=== PATIENT | male | born 1945 | race Caucasian/White ===

== ENCOUNTER 2016-11-28 12:12 | Observation (INO) | payer MEDICARE, OTHER ==
[~2016-11-28] VITALS: Ht 193 cm; Wt 126.5 kg
[2016-11-28] VITALS (7 sets, daily range): BP systolic 116–133; BP diastolic 55–76; PULSE 51–60; RESP 17–19; O2SAT 96–98
--- NOTE | 2016-11-28 12:50 | ED.REPORT ---
HPI-Chest Pain 40 and Over Date of Service Nov 28, 2016 ED Provider: History of Present Illness: 71-year-old male here for chest pain. Substernal onset 4 days ago area gets diaphoretic, short of breath, and pain worsens with activity. He is woken up in the middle of night with increased chest pain and diaphoresis. No history of CT, hypertension, diabetes or hypercholesteremia. Patient is a nonsmoker. He was given 325 of aspirin this morning by EMS. He was given 2 nitroglycerin and after each dose his pain was alleviated. He is now rating his pain a of 0 out of 10. He has been under more stress and more anxiety recently. He did take 1 Tums and it did make the pain a little bit better. Son is a medic who was quite concerned about him and prompted this visit today. Denies nausea, vomiting. He had a loose stool today. Last saw his doctor about a year ago. He was hypertensive upon initial evaluation systolic bp in the 200s, no known hx of htn Nursing Notes Stated Complaint: CHEST PAIN Nursing Notes Reviewed: Yes Allergies: Coded Allergies: No Known Allergies (Unverified , 11/28/16) Scheduled Ascorbic Acid (Vitamin C) 250 Mg Tab.chew 1,000 MG PO QAM Aspirin Chew (Aspirin Chew) 81 Mg Chew 162 MG PO QAM Cholecalciferol (Vitamin D3) (Vitamin D3) 2,000 Unit Tablet 2,000 UNIT PO QAM Multivit with Calcium,Iron,Min (Multivitamins H-Ebsamcq-Uesi) 1 Each Tablet 1 EACH PO QAM Scheduled PRN Naproxen Sodium (Naproxen Sodium) 220 Mg Capsule 220 MG PO BID PRN PRN For Pain General Time Seen by MD: 12:38 Chief Complaint Chest pain Hx Obtained From: Patient, Spouse, Son Arrived By: Ambulance Sudden in Onset?: Yes Onset Occurred: 4 days ago Symptom Duration: Intermittent Location: : Substernal Quality: Fullness, Heaviness Radiation: : Does not radiate Severity: Current: No pain currently Severity: Maximum: Pain level 5 out of 10 Recent Healthcare: No recent doctor visit Similar Sx Previous: No Past Medical History Past Medical History Notes: denies Review of Systems Basic Review of Systems Eyes: Vision NL, No discharge ENT: Hearing NL, No pain, No nasal congestion, No pharyngeal pain : No dysuria, No frequency Hematologic: No bleeding, No bruising Constitutional: Denies: Chills, Fatigue, Fever Respiratory: Reports: Dyspnea on exertion, Non-productive cough Cardiovascular: Reports: Chest pain, Dyspnea on exertion, Denies: Palpitations GI: Reports: Diarrhea, Denies: Abdominal pain, Nausea, Vomiting Musculoskeletal: Denies: Back pain Skin: Reports Diaphoresis Neurologic: Denies: Change LOC, Confusion, Focal weakness, Headache, Lightheaded, Problem walking Complete sys rev & neg: except as marked. Physical Exam Initial Vital Signs Vital Signs (First) Date Time Temp Pulse Resp B/P Pulse Ox O2 Delivery O2 Flow Rate FiO2 11/28/16 12:45 36.7 60 17 128/56 97 Room Air Initial VS: Reviewed, Vital signs normal General/Constitutional: Awake, Alert, No acute distress, Well appearing Respiratory / Chest: Breath sounds NL, Breath sounds = bilat, No respiratory distress, No rales, No rhonchi, No wheezing, No stridor, No chest tenderness Cardiovascular: Heart rate NL, Regular rhythm, Heart sounds NL, No murmurs, Peripheral circulation NL, Pulses = bilaterally, No gross BP differential Abdomen: Soft, Non-tender, McBurney's non-tender, No guarding, No rebound, BS normoactive, No distention, No hernia, No palpable mass quiac negative Neck: Supple, Full range of motion, No swelling, Non-tender, No masses, No JVD Skin: Color NL, Warm, Dry, Turgor NL Interpretation & Diagnostics Lab Results Interpretation Result Diagram: 11/28/16 1300 11/28/16 1300 Test 11/28/16 13:00 11/28/16 14:41 White Blood Count 5.5th/mm3 (3.8-10.1) Red Blood Count 4.90mil/mm3 (4.40-5.80) Hemoglobin 15.9g/dL (13.8-17.2) Hematocrit 46.1% (41.0-50.0) Mean Corpuscular Volume 94.1fL (81-100) Mean Corpuscular Hemoglobin 32.4pg (27.0-35.0) Mean Corpuscular Hemoglobin Concent 34.5% (32.0-37.0) Red Cell Distribution Width 13.7% (12.3-15.4) Platelet Count 124bil/L (150-400) Neutrophils (%) (Auto) 55.2% (40-74) Lymphocytes (%) (Auto) 34.1% (14-46) Monocytes (%) (Auto) 7.9% (4-12) Eosinophils (%) (Auto) 2.2% (0-5) Basophils (%) (Auto) 0.6% (0-3) Prothrombin Time 10.9sec (8.1-12.5) Prothromb Time International Ratio 1.02ratio D-Dimer 0.61mg/L FEU (<0.50) Sodium Level 139mEq/L (134-144) Potassium Level 3.9mEq/L (3.5-5.2) Chloride Level 102mEq/L (97-108) Carbon Dioxide Level 19mmol/L (18-29) Blood Urea Nitrogen 22mg/dL (8-27) Creatinine 0.66mg/dL (0.76-1.27) Estimat Glomerular Filtration Rate 127mL/min (>59) Glucose Level 105mg/dL (60-99) Calcium Level 9.1mg/dL (8.5-10.1) Magnesium Level 2.2mg/dL (1.6-2.6) Total Bilirubin 0.7mg/dL (0.0-1.2) Aspartate Amino Transf (AST/SGOT) 28U/L (0-50) Alanine Aminotransferase (ALT/SGPT) 22U/L (0-44) Alkaline Phosphatase 63U/L (25-160) Pro-B-Type Natriuretic Peptide 57.74pg/mL (0-376) Total Protein 7.7g/dL (6.4-8.4) Albumin 4.4g/dL (3.4-5.0) Activated Partial Thromboplast Time 29.2sec (22.8-33.0) X-Ray Chest Interpretation Chest Xray Interpretation: PROCEDURE: X-RAY CHEST ONE VIEW, PORTABLE ([id number]) INDICATIONS: cp/sob TECHNIQUE: One view of the chest was acquired. COMPARISON: None. FINDINGS: Surgical changes and devices: None. Lungs and pleura: No pleural effusions or pneumothorax. Lungs are clear. Mediastinum: Mediastinal contours appear normal. Heart size is normal. Bones and chest wall: No suspicious bony lesions. Overlying soft tissues appear unremarkable. IMPRESSION: 1. No acute cardiopulmonary disease. Re-Eval/Medical Decision Med Decision/Clinical Course Patient has been chest pain free since arrival in ER. HEART score 5, moderate risk Dr. Casey evaluated patient as well, advises tx. 1522 Dr Burns accepts pt, will admit. pt still pain free Discharge & Departure Shift Change Sign-Out Laboratory Evaluation: Lab evaluation discussed Imaging Studies: Imaging discussed Procedures: Results discussed Primary Impression: Chest pain Chest pain type: unspecified Qualified Code: R07.9 - Chest pain, unspecified Disposition: ADMITTED TO HOSPITAL Discharge Condition All VS Reviewed: Yes Condition: Stable Patient Instructions: Chest Pain (ED) Referrals: OTHER,PHYSICIAN (PCP) Carlos Davalos MD, Melaku MD EDSupervising Provider for APC: Antonio De Jesus DO Attending Statement I have seen and examined the patient. I have reviewed the chart and agree with the documentation as recorded by the Midlevel Provider, including assessment, treatment plan, and disposition. Findings from my exam are included in documentation above. copies to: Antonio De Jesus DO; Thai Burns MD, Linnea K ARNP Nov 28, 2016 12:50 Antonio De Jesus DO Nov 28, 2016 16:02 Lucille Matthews Nov 28, 2016 12:50 Antonio De Jesus DO Nov 28, 2016 16:02
[2016-11-28] MEDS ORDERED: LidocaineVisc 2%:Antacid 1:1 10 mL Syringe PO SCH (13:05)
[2016-11-28 13:10] LABS: BASOPHILS % (AUTO) 0.6 % (0-3); EOSINOPHILS % (AUTO) 2.2 % (0-5); MONOCYTES % (AUTO) 7.9 % (4-12); Mean Corpuscular Hemoglobin 32.4 pg (27.0-35.0); Mean Corpuscular Volume 94.1 fL (81-100); NEUTROPHILS % (AUTO) 55.2 % (40-74); Platelet Count 124 bil/L (150-400)
[2016-11-28 13:25] LABS: INR 1.02 ratio
--- NOTE | 2016-11-28 13:36 | DRSVH ---
PROCEDURE: X-RAY CHEST ONE VIEW, PORTABLE ([id number]) INDICATIONS: cp/sob TECHNIQUE: One view of the chest was acquired. COMPARISON: None. FINDINGS: Surgical changes and devices: None. Lungs and pleura: No pleural effusions or pneumothorax. Lungs are clear. Mediastinum: Mediastinal contours appear normal. Heart size is normal. Bones and chest wall: No suspicious bony lesions. Overlying soft tissues appear unremarkable. IMPRESSION: 1. No acute cardiopulmonary disease. Dictated by: José Miguel Glass M.D. on 11/28/2016 at 13:34 Approved by: José Miguel Glass M.D. on 11/28/2016 at 13:34
[2016-11-28 13:41] LABS: TROPONIN T < 0.010 ug/L (0.0-0.011)
[2016-11-28 13:46] LABS: Magnesium 2.2 mg/dL (1.6-2.6)
[2016-11-28] MEDS ORDERED: Nitroglycerin 2% 1 Gm Ointment TOPICAL SCH (13:50)
[2016-11-28] MEDS ORDERED: Heparin 5,000 Unit/mL Inj IVPUSH ONE (14:10)
[2016-11-28] MEDS ORDERED: Heparin 25K Unit/500mL 0.45 NS 25,000 UNIT in IV Premix 1 EACH IV ONE (14:10)
[2016-11-28] MEDS ORDERED: MULT-528 PO (15:29)
[2016-11-28] MEDS ORDERED: CHOL200025 PO (15:29)
[2016-11-28] MEDS ORDERED: ASPI81TA3 PO (15:29)
[2016-11-28] MEDS ORDERED: NAPR220C16 PO (15:29)
[2016-11-28] MEDS ORDERED: ASCO250T7 PO (15:29)
[2016-11-28] MEDS ORDERED: Ondansetron 2 mg/mL 2 mL Inj IVPUSH PRN ×2 (15:40→15:50)
[2016-11-28] MEDS ORDERED: Alum-Mag Hydrox-Simeth 30 mL Suspension PO PRN ×2 (15:40→15:50)
[2016-11-28] MEDS ORDERED: Polyethylene Glycol (PEG) 17 Gm Powder PO PRN (15:50)
--- NOTE | 2016-11-28 15:51 | PCM.HPMED ---
Subjective Date of Service Nov 28, 2016 Primary Provider: Admitting Physician: Thai Burns MD Primary Care Physician: Other,Physician Attending Physician: Thai Burns MD Admit Status: From the Emergency Department, 23-Hour Observation Chief Complaint: chest pain /4 days History of Present Illness: 71 yo adiel with PMH HLD presented with chest pain of 4 days . He states he started to have gradual onset dull aching chest pain on left side 4 days ago. Pain started while walking at workplace. 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 Pain is intermittent,6/10 when it comes ,lasts 15 minutes ,2-3 times/day for the last 3 days. No much exertion at work place except walking. He took Tums last night and give him some relief. He had one episode this morning. Had had another episode this afternoon which lasted a bit longer . He called EMS ,SBP reportedly was in 200's when checked by EMS. nitro x2 given by EMS and pain resolved. He has history of on and off high blood pressure. He had cataract surgery on Tuesday,SBP was 180's,his BP at home was 140's today . He also had history of high cholesterol. He was started on Pravastatin but discontinued due to side effects. Does not exercise much but walks 10,000 steps a day . No symptoms previously No family history of coronary artery disease.never smoked .takes ASA 81mg daily Had similar symptoms 10 years ago after eating Malagasy food. Workup including stress test negative 10 yrs ago ED course: Vital signs unremarkable. Exam unremarkable. EKG sinus rhythm at 67 ,LAFB , initial troponin negative Review of Systems: Comprehensive review of systems performed, pertinent positives and negatives included in history of present illness Allergies Coded Allergies: No Known Allergies (Unverified , 11/28/16) Home Medications ASA 81mg daily PMH Hyperlipidemia High blood pressure Surgical History Bilateral hip replacement Family History Father at age 86 due to old age Mother at 94 due to dementia He has 2 brothers , no coronary disease history Social History Hx Alcohol Use: No Hx Substance Use: No Hx Tobacco Use: No Exam Vital Signs Vital Sign - Last Date Time Temp Pulse Resp B/P Pulse Ox O2 Delivery O2 Flow Rate FiO2 11/28/16 14:22 59 19 126/55 98 Room Air 11/28/16 12:45 36.7 Exam Gen. patient is lying comfortably in hospital bed HEENT: Head is normocephalic atraumatic, Pupils equal and reactive, extraocular movements intact, Lungs clear to auscultation bilaterally Heart regular rate and rhythm without murmurs gallops or rubs Abdomen soft nontender without hepatosplenomegaly Extremities pulses are present dorsalis pedis posterior tibialis and radial. tSkin is warm and dry there are no rashes, Psych alert and oriented to person place and time Neuro cranial nerves II through XII are grossly intact Lymph: There is no lymphadenopathy appreciated in the cervical supra infraclavicular regions : no curran Lab and Diagnostics Result Diagram: 11/28/16 1300 11/28/16 1300 X-Rays, CTs and MRIs PROCEDURE: X-RAY CHEST ONE VIEW, PORTABLE ([id number]) INDICATIONS: cp/sob IMPRESSION: 1. No acute cardiopulmonary disease. Dictated by: José Miguel Glass M.D. on 11/28/2016 at 13:34 12-lead ECG SR at67,LAFB Assessment & Plan 71 [facility] with PMH HLD presented with chest pain of 4 days . # Chest pain -ACS unlikely but possible. -EKG sinus rhythm at 67,LAFB , initial troponin negative -nitro prn for painm,ASA given -EKG prn when chest pain -troponin q6h ,echo -Stress test in a.m. if troponin remains negative -trial of Protonix 20 mg po bid started -hold off statin given history of side effects. lipid profile in the morning.a1c requested # history of HLD -lipid panel in am # high blood pressure -serial BP measurement -will consider meds if high observation status Full code Thai Burns MD Nov 28, 2016 15:51
--- NOTE | 2016-11-28 17:17 | NUR ---
Admit to [facility] Patient report called by Manjeet Klein RN in ED. Patient arrived via gurney and was able to transfer to bed independently. Patient stood on standing scale. Patient alert and oriented X3. Patient denied any pain. Patient oriented to room, staff, plan of care, call light, visiting hours, television remote, and menu. Patient admit complete.
--- NOTE | 2016-11-28 19:04 | NUR ---
JUVENAL explained to pt and his who is at bedside. JUVENAL signed. Copy of JUVENAL and Medicare self administered medication information given to pt.
[2016-11-28] MEDS: Pantoprazole 20 mg ER24 Tablet PO SCH (21:23)
[2016-11-29] VITALS (8 sets, daily range): BP systolic 105–145; BP diastolic 54–75; PULSE 47–59; RESP 18; O2SAT 95–98
--- NOTE | 2016-11-29 05:37 | NUR ---
Chest pain/BP At 2146hrs PT complained of slight chest pressure 2/10, also said he felt a bit anxious, he has a lot going on in his life right now. The pain wasnt as bad as when he came to hospital, EKG done with no changes, BP 123/68. Pain resolved with one nitro, no further pain. At 0051hrs BP was 105/54, it had been continually dropping through the night, chart writer removed the Nitro patch and an hour later BP had improved to 117/67. PT slept well all night.
[2016-11-29 06:10] LABS: BASOPHILS % (AUTO) 0.7 % (0-3); EOSINOPHILS % (AUTO) 3.1 % (0-5); MONOCYTES % (AUTO) 9.1 % (4-12); Mean Corpuscular Hemoglobin 33.1 pg (27.0-35.0); NEUTROPHILS % (AUTO) 50.9 % (40-74); Platelet Count 96 bil/L (150-400)
[2016-11-29 06:28] LABS: TROPONIN T 0.01 ug/L (0.0-0.011)
[2016-11-29 06:40] LABS: Magnesium 2.2 mg/dL (1.6-2.6)
[2016-11-29] MEDS: Pantoprazole 20 mg ER24 Tablet PO SCH ×2 (08:57→20:59)
--- NOTE | 2016-11-29 09:00 | NUR ---
Pt off floor for stress test
--- NOTE | 2016-11-29 12:29 | NUR ---
Social Work-initial assessment/ readiness for discharge/ multidisciplinary rounds: data:See initial assessment. Pt is a 71 y/o male who was admitted on 11/28/16 for chest pain per H&P. Pt's insurance is [employer] and [employer] and PCP is Dr. Davalos. EMR reviewed. Pt's readmission score is 0. SW met with pt at bedside, SW role explained. Pt is alert and oriented x3. Pt resides at home with his where he remains independent with ADLs. Pt drives and does not use any DME. Pt has no HH or SNF history. Pt has no watermaster care insurance or VA benefits. SW discussed DPOA/ advanced directive, pt has completed this, SW encouraged a copy to be brought in. Pt confirms his will provide transport home. SW provided pt with discharge planning checklist and encouraged him to call with any questions, phone number provided on white board in room. 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 No anticipated discharge needs. SW will continue to follow if needs arise. Assessment:pt who is independent at baseline. Plan:Pt to discharge home when medically stable via POV. No anticipated discharge needs. SW will continue to follow if needs arise. BETSY Celaya Addendum: 11/29/16 at 1232 by MONSE CARCAMO Amended: Links added.
--- NOTE | 2016-11-29 16:27 | PCM.PNMED ---
Subjective Date of Service Nov 29, 2016 Subjective No further chest pain. BP normal. Bradycardic Exam Vital Signs Vital Sign - Last Date Time Temp Pulse Resp B/P Pulse Ox O2 Delivery O2 Flow Rate FiO2 11/29/16 13:06 36.4 51 18 145/75 95 Room Air Exam Gen. patient is lying comfortably in hospital bed HEENT: Head is normocephalic atraumatic, Pupils equal and reactive, extraocular movements intact, Lungs clear to auscultation bilaterally Heart regular rate and rhythm without murmurs gallops or rubs Abdomen soft nontender without hepatosplenomegaly Extremities pulses are present dorsalis pedis posterior tibialis and radial. tSkin is warm and dry there are no rashes, Psych alert and oriented to person place and time Neuro cranial nerves II through XII are grossly intact Lymph: There is no lymphadenopathy appreciated in the cervical supra infraclavicular regions : no curran IVs and Medications Medications Reviewed: Medications were reviewed in detail Lab and Diagnostics Result Diagram: 11/29/16 0550 11/29/16 0550 X-Rays, CTs and MRIs PROCEDURE: X-RAY CHEST ONE VIEW, PORTABLE ([id number]) INDICATIONS: cp/sob IMPRESSION: 1. No acute cardiopulmonary disease. Dictated by: José Miguel Glass M.D. on 11/28/2016 at 13:34 12-lead ECG SR at67,LAFB Cardiac Echo Impressions Interpretation Summary The left ventricle is mildly dilated. The ejection fraction is estimated to be 60-65%. The right ventricle is normal in size and function. No significant valvular pathology seen. The aortic root is mildly dilated. The ascending aorta is mild-moderately enlarged. The aortic arch is moderate-severely enlarged (4.7 cm in diameter). Assessment & Plan 71 yo adiel with PMH HLD presented with chest pain of 4 days . # Chest pain -ACS unlikely -EKG sinus rhythm at 67,LAFB , troponin negative x3 -nitro prn for painm,ASA given -EKG prn when chest pain -echo no wall motion abnormality but dilated aortic arch. -Stress test fixed defect on the inferior wall. Resting phase tomorrow -trial of Protonix 20 mg po bid started -hold off statin given history of side effects. LDL 130.a1c requested # suspected aortic aneurysm -aortic arch is moderate-severely enlarged (4.7 cm in diameter) on echo -will do CT angortogram -will consider outpatient vascular surgical eval if aortogram is negative for acute pathology like dissection. -Initially considered initiating beta ike but HR high 40s without treatment -We reinforce closer Blood pressure monitoring and treatment # history of HLD -LDL 130 -will start low dose pravastatin tomorrow # high blood pressure,improved -serial BP measurement -will consider meds if high # Thrombocytopenia of unclear significance #Sinus bradycardia -TSH with FT4 WNL -May need outpatient sleep study. observation status Full code VTE Mechanical Devices: Venous Foot Pump Thai Burns MD Nov 29, 2016 16:27
--- NOTE | 2016-11-29 16:30 | DRSVH ---
[facility] [address] [place] [address] Echocardiogram Report Name: RONY STOKES Date: Height: 76 in Hospital Exam Location: [facility] Weight: 279 lb Gender: Male BSA: 2.6 m2 : 1945 Age: 71 yrs BP: 132/73 mmHg Reason For Study: Chest Pain Ordering Physician: HOSPITALIST [facility] Performed By: Whit Soto Referring Physician: DEB BURNS Interpretation Summary The left ventricle is mildly dilated. The ejection fraction is estimated to be 60-65%. The right ventricle is normal in size and function. No significant valvular pathology seen. The aortic root is mildly dilated. The ascending aorta is mild-moderately enlarged. The aortic arch is moderate-severely enlarged (4.7 cm in diameter). Consider CT aortogram. Discussed with Dr. Burns. Procedure: A two-dimensional transthoracic echocardiogram with color flow and Doppler was performed. The study quality was technically adequate. Most of the acoustic windows were suboptimal, but the best imaging was obtained from the subcostal window. The patient was in normal sinus rhythm during the exam. Left Ventricle: The left ventricle is mildly dilated. Left ventricular wall thickness is mildly increased. Proximal septal thickening is noted. There is no echo evidence for significant left ventricular outflow tract obstruction. There is no thrombus. The ejection fraction is estimated to be 60-65%. There are no focal wall motion abnormalities. Assessment of diastolic parameters indicates normal left ventricular diastolic function and normal filling pressures. Right Ventricle: The right ventricle is normal in size and function. Atria: The left atrium is mildly dilated. The right atrium is mildly dilated. The interatrial septum is intact with no evidence for an atrial septal defect. Mitral Valve: There is mild mitral annular calcification. The mitral valve leaflets are slightly calcified. There is trace mitral regurgitation. Aortic Valve: The aortic valve is trileaflet. The aortic valve opens well. The aortic valve is slightly calcified. There is no aortic valve stenosis. No aortic regurgitation is present. Tricuspid Valve: The tricuspid valve is normal in structure and function. Pulmonary artery pressures cannot be estimated because of the lack of a measurable TR jet velocity. There is trace tricuspid regurgitation. Pulmonic Valve: The pulmonic valve is normal in structure and function. There is a trace or physiologic amount of pulmonic regurgitation. Great Vessels: The aortic root is mildly dilated. The ascending aorta is mild-moderately enlarged. The aortic arch is moderate-severely enlarged. The IVC is of normal diameter and collapses greater than 50% with a sniff. This suggests a low right atrial pressure of 3 mm Hg. Pericardium/ Pleura There is no pericardial effusion. There is an anterior echo-free space consistent with a fat pad. There is no pleural effusion. MMode/2D Measurements & Calculations LVIDd: 5.8 cm RA long axis LVOT diam: 2.6 cm LVIDs: 3.7 cm LA A2 area: 28.0 cm Ao root diam FS: 35.0 % LA A4 area: 28.2 cm RA area IVSd: 1.1 cm LA length (vol) asc Aorta Diam LVPWd: 1.2 cm : 23.3 cm LA vol: 104.6 ml RA vol Ao Arch Diam (Prox LA vol index : 82.3 ml Trans): 4.7 cm RA : 41.0 ml/m2 : 32.3 mm2 LV chen. diameter/BSA LV sys. diameter/BSA TAPSE: 2.7 cm (cm/m^2): 2.3 (cm/m^2): 1.5 Doppler Measurements & Calculations Ao V2 max: 138.1 cm/secMV E max rory MV E/A: 1.1 PA V2 max Ao max P.6 mmHg : 62.6 cm/sec Med Peak E' Rory : 60.1 cm/sec Ao mean P.3 mmHg MV A max rory PA mean PG LVOT Max Rory : 56.5 cm/sec E/E' med: 7.8 : 0.86 mmHg : 93.5 cm/sec Lat Peak E' Rory FABIAN(I,D): 3.9 cm sev ratio: 0.74 E/E' lat: 5.4 E/e' average: 6.6 MV dec time: 0.19 sec Ao V2 mean LV V1 max PG PA V2 mean : 98.7 cm/sec : 43.9 cm/sec Ao V2 VTI LV V1 VTI: 23.1 cm PA pr(Accel) : 26.3 mmHg FABIAN(V,D): 3.5 cm2 FABIAN indexed to BSA (cm^2/m^2): 1.5 Reading Physician:PM
--- NOTE | 2016-11-29 19:25 | DRSVH ---
PROCEDURE: CT ANGIO CHEST ABDOMEN AND PELVIS INDICATIONS: large aortic arch on echo TECHNIQUE: After the administration of intravenous contrast, 3 mm thick sections again acquired from the lung ap ices to the iliac crests. 3-dimensional maximum intensity projection (MIP) oblique sagittal and deanna nal reformats were then acquired, and/or 3-dimensional volume rendering reformats. For radiation dos e reduction, the following was used: automated exposure control. COMPARISON: [facility], [facility], ECHO COMPLETE, 11/29/2016, 10:35. FINDINGS: Image quality: There is metallic streak artifact secondary to patient's bilateral hip prostheses. AORTA: Evaluation of the aortic root is limited due to non-gated technique. Epicentered reduction, the aorta measures up to 3.5 cm. There is mild aneurysmal dilatation of the ascending thoracic aorta measuring up to 4.0 cm. There is mild aneurysmal dilatation of the mid aortic arch measuring up to 3.1 cm. The mid proximal descending thoracic aorta also demonstrates mild aneurysmal dilatation mark uring up to 3.1 cm. At the level of the diaphragmatic hiatus, the aorta is normal in caliber measuri ng up to 2.9 cm. The abdominal aorta is normal in caliber measuring less than 3 cm. No intimal flap s or focal stenoses. There is conventional branching of the great vessels which appear normal in ricarda iber and patent where visualized. CHEST: Lungs and pleura: There is mild dependent atelectasis bilaterally. No pleural effusions or pneumotho rax. Central and peripheral airways are patent and normal in caliber. Mediastinum: Heart size is normal. No pericardial effusion. There is coronary arterial vascular ca lcification. No mediastinal or hilar adenopathy by size criteria. Central pulmonary arteries are no rmal in size. Esophagus is normal in caliber. No hiatal hernias. Bones and chest wall: No axillary adenopathy by size criteria. There is flame shaped soft tissue in the retroareolar regions bilaterally, right greater than left, suggestive of gynecomastia. Thyroid gland demonstrates no discrete nodules. No suspicious bony lesions. No vertebral body compression f ractures. ABDOMEN: Vasculature: Celiac trunk and mesenteric arteries are patent. Renal arteries are also patent. Ther e are single renal arteries bilaterally. Solid organs: Liver and spleen are normal in size. Gallbladder appears within normal limits without calcified gallstones. Biliary system is non dilated. Pancreas enhances normally. No adrenal nodul es. The kidneys demonstrate no hydronephrosis. There is small bilateral renal cysts. Peritoneum and bowel: No free fluid or air. Bowel loops are normal in caliber and wall thickness. Nodes and vessels: No retroperitoneal or mesenteric adenopathy by size criteria. Inferior vena cava is normal in morphology. Miscellaneous: No ventral hernias. PELVIS: Genitourinary: Bladder wall thickness is grossly normal, with evaluation of the bladder limited due to extensive streak artifact from patient's hip prostheses. Miscellaneous: No inguinal hernias or adenopathy. No ventral hernias. Bones: No suspicious bony lesions. No vertebral body compression fractures. IMPRESSION: 1. 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 No evidence of dissection. Dictated by: José Miguel Glass M.D. on 11/29/2016 at 19:10 Approved by: José Miguel Glass M.D. on 11/29/2016 at 19:23
--- NOTE | 2016-11-29 19:26 | NUR ---
Activity Pt ambulated around in room with no SOB, pain, or other noted distress. Strong and steady when on feet, Non-skid socks on, no observable deficits. Instructed to use call light if having any pain, SOB, or sensation changes. Pt had none during shift, cooperative with plan of care.
[2016-11-30 01:00] VITALS: BP 127/68; PULSE 54; RESP 18; O2SAT 95
[2016-11-30 06:14] VITALS: BP 135/78; PULSE 50; RESP 18; O2SAT 97
[2016-11-30] MEDS: Pantoprazole 20 mg ER24 Tablet PO SCH (07:06)
[2016-11-30 09:02] VITALS: BP 139/82; PULSE 57; RESP 18; O2SAT 94
[2016-11-30 09:20] VITALS: PULSE 55
--- NOTE | 2016-11-30 12:04 | PCM.DIMED ---
Discharge Instructions Date of Service Nov 30, 2016 Dates of Hospitalization Nov 28, 2016 at 15:28 Discharge Diagnosis Discharge Diagnosis # Chest pain ,improved -ACS ruled out , probably due to acid reflex. # Mild thoracic ascending aortic aneurysm ,4.0cm # HLD # high blood pressure,improved #Sinus bradycardia Diet Discharge Diet: Low fat, Low Sodium, Heart Healthy Activity Discharge Activity: Limited until seen by PCP Call your provider Call your provider for: Fever or Chills, Shortness of breath, Bleeding, Chest pain, Vomitting, Excessive diarrhea, Weakness (unilateral) Patient Instructions Patient Instructions # You were hospitalized due to chest pain. Workup is negative for heart attack / coronary artery disease. Pain may be due to acid reflex. Please take a trial of Protonix 20 mg by mouth daily . You have high cholesterol,LDL 130, please take atorvastatin 20 mg by mouth at bedtime. Please discuss with PCP and switch to other cholesterol-lowering medications If not tolerated due to side effects. Please continue taking aspirin 81 mg by mouth daily. # You were noted to have mild thoracic ascending aorta aneurysm measuring 4.0 cm. Ideally you need to be on beta ike ( medication to slow heart rate and low blood pressure) . Your heart rate is in 50's without any medications. Please check blood pressure and heart rate daily and keep log . Your PCP may start you on beta ike if indicated. You will need at least annual CT or MR angiography. You may also need yearly echocardiogram. You need to be on cholesterol-lowering medication/statin . Please take atorvastatin as instructed above. # You had high blood pressure on presentation but normal while in the hospital. I did not start you on any antihypertensive. Please check blood pressure daily and discuss with PCP if medication is indicated. Please follow-up with PCP in 1-2 weeks. Follow-up with PCP in: 1 week (Dr Haji ) Thai Burns MD Nov 30, 2016 12:04
--- NOTE | 2016-11-30 12:28 | NUR ---
Social Work-discharge: Data:EMR reviewed. Pt is on day 2 of hospitalization for Chest pain per H&P. Pt is medically stable for discharge. Pt resides at home with and has been up independent in his room. Pt confirms plan of home no needs. No discharge needs identified. All updated and agreeable to plan. Assessment:pt who is independent at baseline. Plan:Pt to discharge home today via POV. No discharge needs identified. All updated and agreeable to plan. BETSY Celaya
[2016-11-30 12:36] VITALS: BP 144/81; PULSE 62; RESP 16; O2SAT 97
[2016-11-30] MEDS ORDERED: ATOR20TA PO (12:48)
[2016-11-30] MEDS ORDERED: PANT20TA2 PO (12:48)
--- NOTE | 2016-11-30 13:26 | PCM.DC.MED ---
Discharge Summary Date of Service Nov 30, 2016 Dates of Hospitalization Date of Hospital Admission Nov 28, 2016 at 15:28 Date of Discharge: Nov 30, 2016 Providers: Admitting Physician: Thai Burns MD Primary Care Physician: Other,Physician Attending Physician: Thai Burns MD Diagnosis at Time of Discharge Diagnosis at Time of Discharge # Chest pain ,improved -ACS ruled out , probably due to acid reflex. # Mild thoracic ascending aortic aneurysm ,4.0cm # HLD # high blood pressure,improved #Sinus bradycardia Procedures XRay, CTs & MRIs PROCEDURE: X-RAY CHEST ONE VIEW, PORTABLE ([id number]) INDICATIONS: cp/sob IMPRESSION: 1. No acute cardiopulmonary disease. Dictated by: José Miguel Glass M.D. on 11/28/2016 at 13:34 PROCEDURE: CT ANGIO CHEST ABDOMEN AND PELVIS INDICATIONS: large aortic arch on echo TECHNIQUE: After the administration of intravenous contrast, 3 mm thick sections again acquired from the lung apices to the iliac crests. 3-dimensional maximum intensity projection (MIP) oblique sagittal and coronal reformats were then acquired, and/or 3-dimensional volume rendering reformats. For radiation dose reduction, the following was used: automated exposure control. COMPARISON: [facility], [facility], ECHO COMPLETE, 11/29/2016, 10:35. FINDINGS: Image quality: There is metallic streak artifact secondary to patient's bilateral hip prostheses. AORTA: Evaluation of the aortic root is limited due to non-gated technique. Epicentered reduction, the aorta measures up to 3.5 cm. There is mild aneurysmal dilatation of the ascending thoracic aorta measuring up to 4.0 cm. There is mild aneurysmal dilatation of the mid aortic arch measuring up to 3.1 cm. The mid proximal descending thoracic aorta also demonstrates mild aneurysmal dilatation measuring up to 3.1 cm. At the level of the diaphragmatic hiatus, the aorta is normal in caliber measuring up to 2.9 cm. The abdominal aorta is normal in caliber measuring less than 3 cm. No intimal flaps or focal stenoses. There is conventional branching of the great vessels which appear normal in caliber and patent where visualized. CHEST: Lungs and pleura: There is mild dependent atelectasis bilaterally. No pleural effusions or pneumothorax. Central and peripheral airways are patent and normal in caliber. Mediastinum: Heart size is normal. No pericardial effusion. There is coronary arterial vascular calcification. No mediastinal or hilar adenopathy by size criteria. Central pulmonary arteries are normal in size. Esophagus is normal in caliber. No hiatal hernias. Bones and chest wall: No axillary adenopathy by size criteria. There is flame shaped soft tissue in the retroareolar regions bilaterally, right greater than left, suggestive of gynecomastia. Thyroid gland demonstrates no discrete nodules. No suspicious bony lesions. No vertebral body compression fractures. ABDOMEN: Vasculature: Celiac trunk and mesenteric arteries are patent. Renal arteries are also patent. There are single renal arteries bilaterally. Solid organs: Liver and spleen are normal in size. Gallbladder appears within normal limits without calcified gallstones. Biliary system is non dilated. Pancreas enhances normally. No adrenal nodules. The kidneys demonstrate no hydronephrosis. There is small bilateral renal cysts. Peritoneum and bowel: No free fluid or air. Bowel loops are normal in caliber and wall thickness. Nodes and vessels: No retroperitoneal or mesenteric adenopathy by size criteria. Inferior vena cava is normal in morphology. Miscellaneous: No ventral hernias. PELVIS: Genitourinary: Bladder wall thickness is grossly normal, with evaluation of the bladder limited due to extensive streak artifact from patient's hip prostheses. Miscellaneous: No inguinal hernias or adenopathy. No ventral hernias. Bones: No suspicious bony lesions. No vertebral body compression fractures. IMPRESSION: 1. 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 No evidence of dissection. Dictated by: José Miguel Glass M.D. on 11/29/2016 at 19:10 ECG 12 Lead SR [id number] Cardiac Echo Impression Interpretation Summary The left ventricle is mildly dilated. The ejection fraction is estimated to be 60-65%. The right ventricle is normal in size and function. No significant valvular pathology seen. The aortic root is mildly dilated. The ascending aorta is mild-moderately enlarged. The aortic arch is moderate-severely enlarged (4.7 cm in diameter). Brief History per HPI 71 yo gentelman with PMH HLD presented with chest pain of 4 days . He states he started to have gradual onset dull aching chest pain on left side 4 days ago. Pain started while walking at workplace. 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 Pain is intermittent,6/10 when it comes ,lasts 15 minutes ,2-3 times/day for the last 3 days. No much exertion at work place except walking. He took Tums last night and give him some relief. He had one episode this morning. Had had another episode this afternoon which lasted a bit longer . He called EMS ,SBP reportedly was in 200's when checked by EMS. nitro x2 given by EMS and pain resolved. He has history of on and off high blood pressure. He had cataract surgery on Tuesday,SBP was 180's,his BP at home was 140's today . He also had history of high cholesterol. He was started on Pravastatin but discontinued due to side effects. Does not exercise much but walks 10,000 steps a day . No symptoms previously No family history of coronary artery disease.never smoked .takes ASA 81mg daily Had similar symptoms 10 years ago after eating [place] food. Workup including stress test negative 10 yrs ago ED course: Vital signs unremarkable. Exam unremarkable. EKG sinus rhythm at 67 ,LAFB , initial troponin negative Hospital Course 71 yo adiel with PMH HLD presented with chest pain of 4 days . # Chest pain ,resolved -ACS ruled out -EKG sinus rhythm at 67,LAFB , troponin negative x3 -Continue home ASA 81 mg by mouth daily -echo no wall motion abnormality but dilated aortic arch up to 4.7 but CTA measured 4cm -Stress test fixed defect on the inferior wall. Resting phase unchanged. low Risk study overall -trial of Protonix 20 mg po bid daily - LDL 130.a1c pending -Patient had intolerance to pravastatin previously. Started atorvastatin 20 mg at bedtime given high LDL and mild ascending aortic aneurysm. Advised follow- up with PCP and switch between statins if not tolerated. #Mild thoracic ascending aortic aneurysm -aortic arch is moderate-severely enlarged (4.7 cm in diameter) on echo but CT angiogram measured 4.0 cm. Negative for acute pathology like dissection. - considered initiating beta ike but HR mid 50s without treatment. Advised patient to follow his blood pressure and HR daily . PCP may start beta blockers if HR is in > 70 and BP is high .ACEI would be to second preferred agent if antihypertensives are indicated. -Counseled on closer Blood pressure monitoring and treatment # history of HLD -LDL 130 - start atorvastatin 20 mg at hs # high blood pressure,improved patient had high blood pressure reportedly when EMS arrived. BP has been in the 120s. -serial BP measurement # Thrombocytopenia of unclear significance #Sinus bradycardia -TSH with FT4 WNL -May need outpatient sleep study. Discharge home Condition on discharge stable follow-up PCP in 1-2 weeks. He has annual physical in December. Advised to reschedule to 1-2 weeks from now Exam Vital Signs (Last) Date Time Temp Pulse Resp B/P Pulse Ox O2 Delivery O2 Flow Rate FiO2 11/30/16 12:36 36.7 62 16 144/81 97 Room Air Exam Gen. patient is lying comfortably in hospital bed HEENT: Head is normocephalic atraumatic, Pupils equal and reactive, extraocular movements intact, Lungs clear to auscultation bilaterally Heart regular rate and rhythm without murmurs gallops or rubs Abdomen soft nontender without hepatosplenomegaly Extremities pulses are present dorsalis pedis posterior tibialis and radial. tSkin is warm and dry there are no rashes, Psych alert and oriented to person place and time Neuro cranial nerves II through XII are grossly intact Lymph: There is no lymphadenopathy appreciated in the cervical supra infraclavicular regions : no curran Test 11/28/16 13:00 11/28/16 14:41 11/29/16 05:50 Prothrombin Time 10.9sec (8.1-12.5) Prothromb Time International Ratio 1.02ratio D-Dimer 0.61mg/L FEU (<0.50) Pro-B-Type Natriuretic Peptide 57.74pg/mL (0-376) Activated Partial Thromboplast Time 29.2sec (22.8-33.0) White Blood Count 4.5th/mm3 (3.8-10.1) Red Blood Count 4.44mil/mm3 (4.40-5.80) Hemoglobin 14.7g/dL (13.8-17.2) Hematocrit 42.2% (41.0-50.0) Mean Corpuscular Volume 95.0fL (81-100) Mean Corpuscular Hemoglobin 33.1pg (27.0-35.0) Mean Corpuscular Hemoglobin Concent 34.8% (32.0-37.0) Red Cell Distribution Width 13.7% (12.3-15.4) Platelet Count 96bil/L (150-400) Neutrophils (%) (Auto) 50.9% (40-74) Lymphocytes (%) (Auto) 36.0% (14-46) Monocytes (%) (Auto) 9.1% (4-12) Eosinophils (%) (Auto) 3.1% (0-5) Basophils (%) (Auto) 0.7% (0-3) Sodium Level 141mEq/L (134-144) Potassium Level 3.8mEq/L (3.5-5.2) Chloride Level 106mEq/L (97-108) Carbon Dioxide Level 22mmol/L (18-29) Blood Urea Nitrogen 19mg/dL (8-27) Creatinine 0.55mg/dL (0.76-1.27) Estimat Glomerular Filtration Rate 157mL/min (>59) Glucose Level 105mg/dL (60-99) Calcium Level 8.3mg/dL (8.5-10.1) Magnesium Level 2.2mg/dL (1.6-2.6) Total Bilirubin 0.7mg/dL (0.0-1.2) Aspartate Amino Transf (AST/SGOT) 20U/L (0-50) Alanine Aminotransferase (ALT/SGPT) 17U/L (0-44) Alkaline Phosphatase 50U/L (25-160) Troponin T 0.010ug/L (0.0-0.011) Total Protein 6.4g/dL (6.4-8.4) Albumin 3.6g/dL (3.4-5.0) Triglycerides Level 88mg/dL (0-149) Cholesterol Level 182mg/dL (100-199) LDL Cholesterol, Calculated 130.400mg/dL (0-99) VLDL Cholesterol 17.600mg/dL HDL Cholesterol 34mg/dL (>39) Cholesterol/HDL Ratio 5.35 (0.0-4.4) Thyroid Stimulating Hormone (TSH) 2.160uIU/mL (0.450-4.500) Free Thyroxine 1.04ng/dL (0.82-1.77) Discharge Medications Discharge Medications Ascorbic Acid (Vitamin C) 250 Mg Tab.chew 1,000 MG PO QAM (Reported) Aspirin Chew (Aspirin Chew) 81 Mg Chew 162 MG PO QAM (Reported) Atorvastatin (Lipitor) 20 Mg Tablet 20 MG PO DAILY Prescribed by: THAI BURNS MD Cholecalciferol (Vitamin D3) (Vitamin D3) 2,000 Unit Tablet 2,000 UNIT PO QAM ( Reported) Multivit with Calcium,Iron,Min (Multivitamins W-Hudrhnn-Fpbu) 1 Each Tablet 1 EACH PO QAM (Reported) Pantoprazole (Pantoprazole DR) 20 Mg Tablet. 20 MG PO DAILY Prescribed by: THAI BURNS MD As needed Naproxen Sodium (Naproxen Sodium) 220 Mg Capsule 220 MG PO BID PRN PRN For Pain (Reported) Followup Plan Disposition: Home Discharge Diet: Low fat, Low Sodium, Heart Healthy Discharge Activity: Limited until seen by PCP Patient Instructions # You were hospitalized due to chest pain. Workup is negative for heart attack / coronary artery disease. Pain may be due to acid reflex. Please take a trial of Protonix 20 mg by mouth daily . You have high cholesterol,LDL 130, please take atorvastatin 20 mg by mouth at bedtime. Please discuss with PCP and switch to other cholesterol-lowering medications If not tolerated due to side effects. Please continue taking aspirin 81 mg by mouth daily. # You were noted to have mild thoracic ascending aorta aneurysm measuring 4.0 cm. Ideally you need to be on beta ike ( medication to slow heart rate and low blood pressure) . Your heart rate is in 50's without any medications. Please check blood pressure and heart rate daily and keep log . Your PCP may start you on beta ike if indicated. You will need at least annual CT or MR angiography. You may also need yearly echocardiogram. You need to be on cholesterol-lowering medication/statin . Please take atorvastatin as instructed above. # You had high blood pressure on presentation but normal while in the hospital. I did not start you on any antihypertensive. Please check blood pressure daily and discuss with PCP if medication is indicated. Please follow-up with PCP in 1-2 weeks. Follow-up with PCP in: 2 weeks (Carlos Ortiz) Thai Burns MD Nov 30, 2016 13:25
--- NOTE | 2016-11-30 14:56 | NUR ---
DISCHARGE Patient discharged home at 1340, ambulated off floor accompanied by RN and . Two IVs discontinued intact, all belongings returned. Vitals stable, denies pain and in no apparent distress. All instructions for diet, activity, medications, new prescriptions and follow-up reviewed with patient who reports understanding.
--- NOTE | 2016-11-30 17:32 | DRSVH ---
PROCEDURE: 2 DAY STRESS TEST INDICATIONS: CHEST PAIN. COMPARISON: None. Radiopharmaceutical: Rest dose 21.8 mCi of technetium 99 tetrofosmin Stress dose 20.9 mCi of technetium 99 tetrofosmin Patient presentation: Patient is a 71-year-old man with hyperlipidemia and chest pain. FINDINGS: Graded exercise stress test: Following informed consent patient walked on the Ankit protocol for 5 mi nutes and 1 seconds. Study was terminated due to shortness of breath. Patient had occasional PVCs. Conor velazquez had no ST segment changes during physical activity. Resting EKG was significant for incomplete right bundle branch block and was otherwise normal. Benavides treadmill scores 5. This is consistent with low risk exercise portion of the study. Raw data: Normal myocardial tracer uptake. Lung heart ratio is normal. Myocardial perfusion imaging: There is a small sized moderate intensity fixed basal inferior perfusio n defect. This problem is improved by placing the patient in prone position. Therefore it is most con sistent with diaphragmatic attenuation artifact. Quantitative gated SPECT: Peak size ejection fraction is 70%. Rest ejection fraction 62%. No focal wa ll motion abnormalities. IMPRESSION: Low risk graded exercise stress test with myocardial perfusion imaging. No ischemia or prior infarct. Diaphragmatic attenuation artifact is present. Normal wall motion and left ventricular systolic function. There is no prior study available for comparison. Dictated by: Kaylee No M.D. on 11/30/2016 at 17:26 Approved by: Kaylee No M.D. on 11/30/2016 at 17:30
== END 2016-11-30 13:43 | disposition home or self-care (01) ==
LOC: EDBD 12:12 → SED 12:12 → MPC 15:28
PROVIDERS: ADMIT Internal Medicine; ATTEND Internal Medicine
DX: R07.9 Chest pain, unspecified (principal); E78.5 Hyperlipidemia, unspecified; R00.1 Bradycardia, unspecified; I71.2 Thoracic aortic aneurysm, without rupture; R03.0 Elevated blood-pressure reading, without diagnosis of hypertension; D69.6 Thrombocytopenia, unspecified; Z79.82 Long term (current) use of aspirin; Z96.643 Presence of artificial hip joint, bilateral
CPT/HCPCS: 36415; 71010; 71275; 74174; 78452; 80053; 80061; 83036; 83735; 83880; 84439; 84443; 84484; 85025; 85378; 85610; 85730; 93005; 93017; 96374; 99285; A9502; C8929; G0378; J1644; Q9967